=== PATIENT | male | born 1970 ===

== ENCOUNTER 2024-03-26 18:39 | Observation (INO) | payer OTHER, SELFPAY ==
[2024-03-26 13:38] VITALS: BMI 30.7
[2024-03-26 13:47] VITALS: BP 155/100
--- NOTE | 2024-03-26 14:24 | ED.GENMED ---
History of Present Illness
General
Chief Complaint: Back Pain
Time Seen by Provider: 03/26/24 13:46
Travel History
Have you had any contact with someone who has COVID-19?: No
Do you have any symptoms of coronavirus? Fever > 100 degrees, chills, cough, shortness of breath, sore throat, loss of taste or smell, muscle aches, or headache?: No
History of Present Illness
History of Present Illness:
53-year-old male presents emergency department for evaluation of severe back pain gradually worsening over the past few days. He notes that earlier in the week he was squats at the gym but denies any acute pain during that time. He has minimal
pain at rest. This is reporting significant back spasms attempts to stand upright and ambulate. Was given 50 mg IV Toradol by EMS. Denies any lower extremity radicular pain or paresthesias, no loss of bladder or bowel function
Review of Systems
Review of Systems
Allergies reviewed?: Yes
All Other Systems: ROS reviewed and negative except as documented in HPI and ROS
Phy Exam
Physical Exam
Physical Exam:
GEN: Well appearing, NAD, WDWN
HEENT: Oral mucosa moist, no scleral icterus
Cardiac: Regular rate
Lung: No respiratory distress, no tachypnea
MSK: No gross deformity or injuries. Grossly nontender to the lumbar spine bony processes or paraspinous muscles. Straight leg raise is negative bilaterally. Severe spasms whenever the patient attempts to be upright
Skin: Good color, no pallor or jaundice, no rashes
Neuro: AO x3, moves all extremities freely. No sensory level deficits and normal strength of bilateral lower extremities
Psych: Calm, cooperative
Course
Orders/Labs/Results
Orders:
Orders
03/26/24 14:23
diazePAM [Valium Injection] 2 mg IV NOW STA
03/26/24 15:18
diazePAM [Valium Injection] 2 mg IV NOW STA
03/26/24 16:49
Basic Metabolic Panel Urgent
Complete Blood Count/With Diff Urgent
Dexamethasone Sod Phosphate [Decadron] 10 mg IV NOW STA
Morphine Sulfate 4 mg IV NOW STA
CR Lumbar Spine Comp Min 4 Vw* Urgent
Comment:
Reason For Exam: non traumatic pain/unable to ambulate
Vital Signs
Initial and Last Documented VS:
Initial Vital Signs
Temp Pulse Resp Pulse Ox
97.9 F 86 17 98
03/26/24 13:38 03/26/24 13:38 03/26/24 13:38 03/26/24 13:38
Last Documented Vital Signs
Temp Pulse Resp BP Pulse Ox
97.9 F 85 17 152/112 96
03/26/24 13:38 03/26/24 16:17 03/26/24 16:17 03/26/24 16:17 03/26/24 16:17
MDM/Problems Addressed
MDM/Problems Addressed:
After multiple doses of diazepam, morphine, and prehospital the patient still is unable to fully. Every time he attempts to achieve supine his legs seem to collapse evaluated. Lower extremity deficits when examined lying down. He has no urinary
retention or urinary incontinence concerning for cauda equina. No symptoms warranting MRI however patient is not suitable to be discharged due to severe limitation of functionality. I did discuss with the patient the option for admission versus
discharge and after lengthy discussion he did opt for admission. Will admit to the hospital service for further evaluation and management
*Critical Care Note
Total Time (30-74mins, 75-104mins- exclusive of procedures): Not Applicable
ED Attending Note
-
Portions of this chart may have been created with voice recognition software.� Occasional wrong word or��sound alike� substitutions may have occurred due to the inherent limitations of voice recognition software.
Discharge Plan
Departure
Patient Disposition: Admit
Date of Disposition: 03/26/24
Time of Disposition: 18:13
Admit to: Med/Surg
Presentation/result/management discussed w/ accepting MD/DO: Hospitalist
Discharge Problem:
Intractable low back pain
Referrals:
Kenneth Romano MD [Family Provider] -
Interventions
Interventions:
*Risk Screen - Suicide Last Done: 03/26/24 13:48
*Neglect/Abuse Screening Last Done: 03/26/24 13:48
*ED COVID-19 Vaccine History Last Done: 03/26/24 13:48
ED-Musculoskeletal Assessment Last Done: 03/26/24 13:48
Discharge Date and Time
Print Language: PORTUGUESE
[2024-03-26] MEDS: VALIUM INJECTION 2 MG IV ×2 (14:35→15:52)
[2024-03-26 16:17] VITALS: BP 152/112
[2024-03-26] MEDS: DECADRON 10 MG IV (17:38)
[2024-03-26] MEDS: MORPHINE SULFATE 4 MG IV (17:38)
--- NOTE | 2024-03-26 18:19 | HPS.HSE ---
Family Physician
-
Family Physician: Kenneth Romano
Chief Complaint
-
Back pain
History of Present Illness
Patient 53 years old male no significant past medical history coming to the hospital with back pain. Patient tells me he has been having this back pain for over a week. He did some squats with about 200 pounds and he tells me he increased the
weight substantially. Pain is moderate to severe, no radiation to the legs, no bowel bladder incontinence, no fevers or chills. He does have some generalized weakness and feels weak in his legs. No chest pain or shortness of breath. In the ER,
he had a lumbar x-ray with no acute fractures but nonspecific mild wedge to appearance of the T12 and L1 vertebral bodies and also mild multilevel degenerative disc disease. He was referred to hospitalist service for further evaluation.
Medical History
Past Medical History
Past Medical History: Reports None
Past Surgical History: Reports None
Social History
Tobacco: Non-smoker
Alcohol: None
Drug: None
Family History
Family History: Not pertinent
Allergies / Home Medications
Allergies reflects when Allergies were last updated in [facility].
Home Medications with original date entered in [facility]
Allergy/Medication List:
Allergies
Allergy/AdvReac Type Severity Reaction Status Date / Time
No Known Allergies Allergy Unverified 03/26/24 13:46
Home Medications
methylprednisolone 4 mg tablets in a dose pack (Medrol ([place])) 4 mg PO PER PKG DIR 03/26/24
orphenadrine citrate 100 mg tablet,extended release 200 mg PO DAILY 03/26/24
Review of Systems
-
A 12 point ROS was completed and negative except as noted: Yes
Physical Exam
Vital Signs
Vital Signs
Temp Pulse Resp BP Pulse Ox
97.9 F 85 17 152/112 96
03/26/24 13:38 03/26/24 16:17 03/26/24 16:17 03/26/24 16:17 03/26/24 16:17
Physical exam:
General: Well Developed, Well Nourished and No Apparent Distress
HEENT: Normocephalic, Atraumatic and Moist Mucous Membranes
Respiratory: Clear to Auscultation; Negative Wheezes, Rales or Rhonchi
Cardiac: Regular Rhythm and S1/S2
GI: Soft, Nontender and Nondistended
Musculoskeletal: No midline tenderness. Tenderness in the lumbar area. Decreased range of motion of the back. No Clubbing, No Cyanosis and No Edema
Neuro: Awake, Alert and Oriented
Psych: Calm
Physical Exam
General: Other
Impression/Plan
-
IMPRESSION:
Patient 53 years old male came into the hospital with acute lower back pain.
Impression:
Acute lower back pain with lower extremity weakness, concerns for disc pathology and rule out compression fractures
PLAN:
Pain control, multimodal with Tylenol, Toradol, Lidoderm patch, IV morphine as needed
PT eval
Plan for MRI of the lumbar area
SCDs for DVT prophylaxis
CODE STATUS full code
Total time spent on today's encounter was 55 minutes which included time spent in counseling the patient/family regarding diagnosis and treatment plan as listed above, goals of care, and symptom management. Case was discussed with nursing staff,
specialists, and care coordinators/case management. All labs and imaging personally reviewed by me. Remainder the time spent in detailed review of previous records, lab data, imaging, and other medical provider documentation.
[2024-03-26 19:00] LABS: % Basophils 0.2 % (0-2); % Eosinophils 0.2 % (0-6); % Immature Granulocytes 0.2 % (0-0.5); % Lymphocytes 18.6 % (20.5-51.1); % Monocytes 7.3 % (1.7-9.3); % Neutrophils 73.5 % (42.2-75.2); Absolute Lymphocytes 2.3 10^3/uL (1.2-3.4); Absolute Monocytes 0.9 10^3/uL (0.1-0.6); Absolute Neutrophils 8.9 10^3/uL (1.4-6.5); Hematocrit 42.8 % (39.0-52.0); Hemoglobin 14.6 g/dL (13.0-18.0); Mean Corp Hgb Conc. 34.1 g/dL (33.0-37.0); Mean Corpuscular Hgb 31.3 pg (27.0-31.0); Mean Corpuscular Volume 91.8 fL (80.0-94.0); Mean Platelet Volume 10.5 fL (7.4-10.4); Nucleated Red Blood Cells % 0 % (-); Platelet Count 248 10^3/uL (130-400); Red Blood Cell Count 4.66 10^6/uL (4.70-6.10); Red Cell Dist. Width 12.9 % (11.5-14.5); White Blood Cell Count 12.1 10^3/uL (4.8-10.8)
[2024-03-26 19:16] LABS: Blood Urea Nitrogen 18 mg/dl (9-20); Calcium 9.7 mg/dl (8.4-10.2); Carbon Dioxide 23 mmol/L (22-30); Chloride 103 mmol/L (98-107); Estimated Creatinine Clearance 110 ml/min; Glucose 87 mg/dl (70-99); Sodium 136 mmol/L (135-145); eGFR > 60.00
[2024-03-26 20:21] VITALS: BP 153/104; BMI 30.2
--- NOTE | 2024-03-26 20:30 | PTCARENOTE ---
Pt arrived to room 418-02. Pt did stand/ pivot from stretcher to bed. Pt AAOx3, VSS. Pt c/o 6 lower back pain. Pt in no signs of acute distress, respirations regular. Pt oriented to room, call gregorio placed within reach.
[2024-03-26] MEDS: TORADOL 15 MG IV (21:40)
[2024-03-26 23:51] VITALS: BP 136/90
[2024-03-27] MEDS: TORADOL 15 MG IV ×2 (03:40→09:21)
[2024-03-27 06:18] LABS: Hematocrit 41.2 % (39.0-52.0); Hemoglobin 14.3 g/dL (13.0-18.0); Mean Corp Hgb Conc. 34.7 g/dL (33.0-37.0); Mean Corpuscular Hgb 31.5 pg (27.0-31.0); Mean Corpuscular Volume 90.7 fL (80.0-94.0); Mean Platelet Volume 10.4 fL (7.4-10.4); Platelet Count 272 10^3/uL (130-400); Red Blood Cell Count 4.54 10^6/uL (4.70-6.10); Red Cell Dist. Width 12.9 % (11.5-14.5)
[2024-03-27 06:51] LABS: Blood Urea Nitrogen 22 mg/dl (9-20); Calcium 9.7 mg/dl (8.4-10.2); Carbon Dioxide 21 mmol/L (22-30); Chloride 104 mmol/L (98-107); Estimated Creatinine Clearance 109 ml/min; Glucose 122 mg/dl (70-99); Potassium 4.5 mmol/L (3.5-5.1); Sodium 135 mmol/L (135-145); eGFR > 60.00
[2024-03-27 07:30] VITALS: BP 141/95
[2024-03-27] MEDS: LIDOCAINE 4% PATCH 1 PATCH TOPICAL (09:10)
--- NOTE | 2024-03-27 09:20 | W.PN.HOSP.TC ---
Today's Communication/Plan
-
Discharge planning today.
Assessment / Plan
Assessment / Plan
Physical exam:
General: Well Developed, Well Nourished and No Apparent Distress
HEENT: Normocephalic, Atraumatic and Moist Mucous Membranes
Respiratory: Clear to Auscultation; Negative Wheezes, Rales or Rhonchi
Cardiac: Regular Rhythm and S1/S2
GI: Soft, Nontender and Nondistended
Musculoskeletal: No midline tenderness. Tenderness in the lumbar area. Decreased range of motion of the back. No Clubbing, No Cyanosis and No Edema
Neuro: Awake, Alert and Oriented
Psych: Calm
MRI lumbar spine:
No findings to suggest an acute fracture.
There is a shallow left central disk herniation at T12-L1, no cord compression.
Mild central canal and lateral recess stenosis at L4-5.
A/P:
Impression:
Acute lower back pain
PLAN:
Pain control, multimodal with Tylenol, Toradol, Lidoderm patch, IV morphine as needed
PT eval
Status post MRI of the lumbar spine as above.
SCDs for DVT prophylaxis
CODE STATUS full code
Anticipated Discharge: Today
Subjective/Interval History
-
Date of Service: March 27, 2024
Patient pain is much improved today. He is able to ambulate.
Objective Data
-
Labs:
Laboratory Results
03/27/24
05:13
WBC 7.0
Hgb 14.3
Hct 41.2
Plt Count 272
Sodium 135
Potassium 4.5
Chloride 104
Carbon Dioxide 21 L
BUN 22 H
Creatinine 0.9
Glucose 122 H
Calcium 9.7
Vital Signs:
Vital Signs
Temp Pulse Resp BP Pulse Ox
97.9 F 63 18 141/95 97
03/27/24 07:30 03/27/24 07:30 03/27/24 07:30 03/27/24 07:30 03/27/24 07:30
I&O
03/26/24 03/27/24 03/28/24
06:59 06:59 06:59
Intake Total 240 / 240
Balance 240 / 240
--- NOTE | 2024-03-27 10:45 | CM ---
Addendum entered by Nanette Willingham 03/27/24 16:19:
d/c home with script for outpatient PT.
Original Note:
Patient seen bedside.
IA completed.
Observation form completed.
patient lives with spouse and children in a 2 story home with 1 step to enter.
Independent prior to admission without assistive devices.
Patient has not had vn in the past.
Patient drives.
PCP: Juan Antonio
Pharmacy: [facility]
Plan:home with possible VN
[2024-03-27] MEDS: FLEXERIL 5 MG PO (13:17)
[2024-03-27 15:20] VITALS: BP 148/88
--- NOTE | 2024-03-27 15:23 | W.DCSUMMARY ---
Discharge Summary
Discharge Data
Date of Admission: 03/26/24
Date of Discharge: 03/27/24
-
Pending Results: No
Hospital Course
Patient 53 years old male with no significant past medical history came into the hospital with lower back pain. Patient had some x-rays with no acute fractures but some nonspecific abnormalities. Due to his intractable pain and some weakness in
his legs, we did an MRI of the lumbar spine. MRI of the lumbar spine showed shallow left central disc herniation at the level of T12 and L1 and no cord compression, and mild central canal and lateral recess stenosis at the level of L4-L5. Patient
improved with pain medications and physical therapy. We arranged for outpatient physical therapy. Patient has been able to ambulate and his pain has been better controlled. He is eager to go home today. He will be discharged in stable condition
today.
Discharge Plan
-
Patient Disposition: Home (Routine Discharge)
Discharge Diagnosis/Procedures: Acute back pain. Mild disc herniation T12-L1. No cord compression. Mild central canal and lateral recess stenosis L4-L5.
Diet: Low Cholesterol
Activity: As tolerated
Driving Restrictions: As prior to admission
Referrals:
Kenneth Romano MD [Family Provider] - in less than 1 week
Prescriptions:
New
cyclobenzaprine 10 mg Tablet
5 mg PO TID Qty: 15 0RF
acetaminophen 325 mg Tablet
650 mg PO Q4HPRN PRN (Reason: mild pain/CHUNG/temp> 100.4F) Qty: 20 0RF
lidocaine 4 % Adhesive Patch,Medicated
1 patch topical DAILY 5 Days Qty: 5 0RF
oxycodone 5 mg capsule
5 mg PO Q8H PRN (Reason: severe pain) Qty: 14 0RF
polyethylene glycol 3350 [Miralax] 17 gram/dose powder
4 g PO DAILY 5 Days Qty: 20 0RF
Continued
orphenadrine citrate 100 mg tablet extended release
200 mg PO DAILY
methylprednisolone [Medrol ([place])] 4 mg Tablets,Dose Pack
4 mg PO PER PKG DIR
Discharge Orders:
Discharge Patient (As Directed); Ordered 03/27/24
Ordered By: Mario Alberto Fitzgerald
Discharge Date and Time
Discharge Date/Time: 03/27/24 15:54
Print Language: TURKISH
== END 2024-03-27 15:54 | disposition home or self-care (01) ==
LOC: 4 WEST ACU 18:39
PROVIDERS: Physician Assistant; ADMITTING PHYSICIAN Hospitalist; EMERGENCY PHYSICIAN Emergency Medicine; FAMILY PHYSICIAN Internal Medicine
DX: M54.9 Dorsalgia, unspecified (principal); M62.830 Muscle spasm of back; R53.1 Weakness; M51.36 Other intervertebral disc degeneration, lumbar region; M51.25 Other intervertebral disc displacement, thoracolumbar region; M48.061 Spinal stenosis, lumbar region without neurogenic claudication
CPT/HCPCS: 72110; 72148; 80048; 85025; 85027; 96374; 96375; 96376; 99285; G0378

== ENCOUNTER 2025-02-13 10:39 | Emergency (ER) | payer OTHER, SELFPAY ==
[2025-02-13 10:44] VITALS: BP 170/118
--- NOTE | 2025-02-13 11:17 | ED.GENMED ---
History of Present Illness
General
Chief Complaint: Blood Pressure Problem
Source: patient
Time Seen by Provider: 02/13/25 10:52
History of Present Illness
History of Present Illness:
54-year-old male with no diagnosed past medical history presenting to the emergency department after he was at his dentist office today, had his vital signs checked and was told he had elevated blood pressure and recommended he come to the ER for
further evaluation. Triage stated that patient states he felt like he had a mild headache but patient states to me that he feels as if it was more just anxiousness over being told his blood pressure was as high as it was as well as having to be at
the dentist office today. Patient notes that 2 years ago he was at his primary care provider and he had elevated blood pressure at that time but has not gone back to the primary care since. Patient does have an appointment scheduled with his
primary care provider in February for routine visit incidentally. Patient is denying any chest pain, shortness of breath, abdominal pain, nausea, vomiting, headaches, visual changes, focal weakness or numbness or any other concerns. Family history
was noted for mother having history of hypertension. Patient is a former smoker, currently uses nicotine gum. Social history was also noted for drinking approximately 6 beers 2 times a week.
Past History
Past History
ED Past Medical History: None
ED Past Surgical History: None
Social History
Tobacco: Former smoker
Alcohol: Other (6 beers twice a week)
Drug: None
Personal:
Living: with family
Employment: Employed
Review of Systems
Review of Systems
All Other Systems: ROS reviewed and negative except as documented in HPI and ROS
Phy Exam
Physical Exam
Physical Exam:
GENERAL: Alert , in no apparent distress
EYE: conjunctiva clear
NECK: Supple
ENT: o/p clr, mmm.
CARDIAC: Regular rate and rhythm
LUNGS: Clear breath sounds bilaterally, no acute respiratory distress, no wheezes/rales/rhonchi
NEUROLOGICAL: Alert and oriented
SKIN: Warm and dry, skin intact.
MUSCULOSKELETAL: well perfused.
PSYCH: Normal and appropriate interaction.
Scores
Heart Failure Risk
Heart Failure Risk Score: Not Applicable
Heart Score for Chest Pain Patients
STEMI patient?: Not applicable
Withdrawal Assessment of Alcohol
Withdrawal Assessment Completed?: Not applicable
Course
Orders/Labs/Results
Orders:
Orders
02/13/25 11:14
Electrocardiogram (*1) Urgent
Reason for Study: Hypertension, Benign
EKG- Treatment ONCE
02/13/25 11:38
Basic Metabolic Panel Urgent
Complete Blood Count/With Diff Urgent
02/13/25 12:23
Amlodipine [Norvasc] 5 mg PO NOW STA
Abnormal Lab Results
02/13/25
11:38
RBC 4.61 L 10^6/uL
(4.70-6.10)
MCH 31.2 H pg
(27.0-31.0)
MPV 10.5 H fL
(7.4-10.4)
Chloride 108 H mmol/L
(98-107)
02/13/25 11:38
02/13/25 11:38
Vital Signs
Initial and Last Documented VS:
Initial Vital Signs
Temp Pulse Resp BP Pulse Ox
98.3 F 82 16 170/118 99
02/13/25 10:44 02/13/25 10:44 02/13/25 10:44 02/13/25 10:44 02/13/25 10:44
Last Documented Vital Signs
Temp Pulse Resp BP Pulse Ox
98.3 F 80 15 162/118 97
02/13/25 10:44 02/13/25 12:30 02/13/25 12:30 02/13/25 12:00 02/13/25 12:30
MDM/Problems Addressed
Differential Diagnosis Includes:
Asymptomatic hypertension, no symptoms to suggest endorgan dysfunction/stroke/ACS
MDM/Problems Addressed:
54-year-old male presented to the ER from dentist office where he was told he had elevated blood pressure. Patient asymptomatic. Blood pressure at time of my exam was 170/115. Patient does note that he was told by primary care provider 2 years
ago he had elevated blood pressure but never followed up with any medical provider following. Patient does have some risk factors for the elevated blood pressure including family history, nicotine use/former tobacco, alcohol use. We discussed
dietary modification as well as exercise to help but given the fact that patient likely has undiagnosed hypertension we will also initiate treatment with medication. Plan to initiate amlodipine 5 mg once daily. Will check basic labs and EKG.
Anticipate discharge home following.
*Pulse Oximetry
Patient hypoxic: no
*Critical Care Note
Total Time (30-74mins, 75-104mins- exclusive of procedures): Not Applicable
Patient Management
Discussion with other providers: PCP
Escalation/DeEscalation of care consider admission/obs:
Spoke to patient's primary care providers nurse at the office and notified them of patient's workup here in the emergency room. Patient has an appointment on March 08. He was provided with a 1 month supply of amlodipine. He does have a blood
pressure cuff at home to continuously monitor blood pressures twice daily and will keep a log of his blood pressures. Patient aware of return precautions to the ER. Stable for discharge home.
ED Attending Note
-
Portions of this chart may have been created with voice recognition software.� Occasional wrong word or��sound alike� substitutions may have occurred due to the inherent limitations of voice recognition software.
Discharge Plan
Departure
Patient Disposition: Home (Routine Discharge)
Date of Disposition: 02/13/25
Time of Disposition: 12:24
Patient with high blood pressure during this ER visit?: Yes
Discharge Problem:
Hypertension
Instructions: High Blood Pressure (DC)
Prescriptions:
New
amlodipine 5 mg tablet
5 mg PO DAILY Qty: 30 0RF
No Action
orphenadrine citrate 100 mg tablet extended release
200 mg PO DAILY
methylprednisolone [Medrol ([place])] 4 mg Tablets,Dose Pack
4 mg PO PER PKG DIR
cyclobenzaprine 10 mg Tablet
5 mg PO TID Qty: 15 0RF
acetaminophen 325 mg Tablet
650 mg PO Q4HPRN PRN (Reason: mild pain/CHUNG/temp> 100.4F) Qty: 20 0RF
lidocaine 4 % Adhesive Patch,Medicated
1 patch topical DAILY 5 Days Qty: 5 0RF
oxycodone 5 mg capsule
5 mg PO Q8H PRN (Reason: severe pain) Qty: 14 0RF
polyethylene glycol 3350 [Miralax] 17 gram/dose powder
4 g PO DAILY 5 Days Qty: 20 0RF
Referrals:
Kenneth Romano MD [Family Provider] -
Interventions
Interventions:
*Risk Screen - Suicide Last Done: 02/13/25 10:44
*General Assessment Last Done: 02/13/25 11:32
*Neglect/Abuse Screening Last Done: 02/13/25 10:44
*ED- Fall Risk Assessment Last Done: 02/13/25 11:32
*ED COVID-19 Vaccine History Last Done: 02/13/25 11:32
*Nursing Disposition Last Done: 02/13/25 12:37
ED- Cardiac Assessment Last Done: 02/13/25 11:44
ED- Neurological Assessment Last Done: 02/13/25 11:44
ED- Pulmonary Assessment Last Done: 02/13/25 11:44
Discharge Date and Time
Discharge Date/Time: 02/13/25 12:38
Print Language: NAMIBIAN
[2025-02-13 11:32] VITALS: BMI 30.7
[2025-02-13 11:34] VITALS: BP 170/127
[2025-02-13 12:00] VITALS: BP 162/118
[2025-02-13 12:06] LABS: % Eosinophils 4.7 % (0-6); % Immature Granulocytes 0.2 % (0-0.5); % Lymphocytes 35.8 % (20.5-51.1); % Monocytes 8.2 % (1.7-9.3); % Neutrophils 50.1 % (42.2-75.2); Absolute Basophils 0.1 10^3/uL (0-0.2); Absolute Eosinophils 0.2 10^3/uL (0-0.7); Absolute Lymphocytes 1.8 10^3/uL (1.2-3.4); Absolute Monocytes 0.4 10^3/uL (0.1-0.6); Absolute Neutrophils 2.6 10^3/uL (1.4-6.5); Hematocrit 41.7 % (39.0-52.0); Hemoglobin 14.4 g/dL (13.0-18.0); Mean Corp Hgb Conc. 34.5 g/dL (33.0-37.0); Mean Corpuscular Hgb 31.2 pg (27.0-31.0); Mean Corpuscular Volume 90.5 fL (80.0-94.0); Mean Platelet Volume 10.5 fL (7.4-10.4); Nucleated Red Blood Cells % 0 % (-); Platelet Count 228 10^3/uL (130-400); Red Blood Cell Count 4.61 10^6/uL (4.70-6.10); Red Cell Dist. Width 13.1 % (11.5-14.5); White Blood Cell Count 5.1 10^3/uL (4.8-10.8)
[2025-02-13 12:11] LABS: Blood Urea Nitrogen 17 mg/dl (9-20); Calcium 9.1 mg/dl (8.4-10.2); Carbon Dioxide 23 mmol/L (22-30); Chloride 108 mmol/L (98-107); Estimated Creatinine Clearance 109 ml/min; Glucose 98 mg/dl (70-99); Potassium 4.4 mmol/L (3.5-5.1); Sodium 140 mmol/L (135-145); eGFR > 60.00
[2025-02-13] MEDS: NORVASC 5 MG PO (12:32)
== END 2025-02-13 12:38 | disposition home or self-care (01) ==
LOC: EMR 10:39
PROVIDERS: Physician Assistant Medical; EMERGENCY PHYSICIAN Emergency Medicine; FAMILY PHYSICIAN Internal Medicine
DX: I10 Essential (primary) hypertension (principal); Z87.891 Personal history of nicotine dependence
CPT/HCPCS: 99283; 80048; 85025; 93005